=== PATIENT | female | born 1970 | race Two or more races ===

== ENCOUNTER 2016-10-26 21:18 | Emergency (ER) | payer OTHER ==
[~2016-10-26] VITALS: Ht 157.5 cm; Wt 50.3 kg
[2016-10-26 21:20] VITALS: BP 99/61
--- NOTE | 2016-10-26 21:34 | Emergency Room Report ---
History of Present Illness General Chief Complaint: Chest Pain Source: Patient, EMS Present Illness HPI Patient is a 45-year-old female who presented after increased neck pain. Generalized weakness. The patient had been vomiting several times throughout the day. Patient recent surgery on her cervical spine at [facility]. Patient had recently been hospitalized for several days. Patient was noted to have some onset of palpitations with standing. Patient had not been having any diarrhea. she denies any leg pain or swelling. Allergies: Coded Allergies: No Known Allergies (Unverified , 10/26/16) Patient History Last Menstrual Period: UNK Now: No Reviewed Nursing Documentation: PMH: Agreed, PSxH: Agreed Nursing Documentation-PMH Hx Asthma: Yes Review of Systems All Other Systems: negative except mentioned in HPI Physical Exam Vital Signs Date Time Temp Pulse Resp B/P Pulse Ox O2 Delivery O2 Flow Rate FiO2 10/26/16 21:10 98.1 107 16 122/74 99 Room Air General Appearance: alert, GCS 15, moderate distress ENT: normal pharynx Neck: limited range of motion Respiratory: lungs clear, normal breath sounds Cardiovascular #1: normal peripheral pulses, regular rate, rhythm Gastrointestinal: normal bowel sounds, non tender Neurologic: normal inspection, alert, oriented x3, responsive, servicer travel trailers III-XII nml as tested Skin: normal inspection, normal color Medical Decision Making Diagnostic Impression: Primary Impression: Chest pain Additional Impressions: Dehydration H/O cervical spine surgery ER Course Patient presented for chest pain and generalized weakness.Differential diagnosis included but was not limited to acute coronary syndrome, pulmonary embolism, pneumonia, aortic dissection, shingles, pneumothorax, aortic dissection, esophageal rupture, pericarditis. Because of complexity of patient 's case laboratory testing and imaging studies were ordered. The CT the chest was ordered due to patient's recent surgery and risk factor for pulmonary embolism. Patient noted to have negative the CT the chest without evident pneumonia or pneumothorax or pulmonary embolism. The patient was given aspirin by EMS for chest pain. Patient started on IV fluids. Dr. Carlin was contacted for transfer to [facility] for further IV hydration and further workup Labs Test 10/26/16 21:50 10/26/16 22:30 White Blood Count 7.6 K/UL (4.8-10.8) Red Blood Count 3.49 M/UL (4.20-5.40) Hemoglobin 11.5 G/DL (12.0-16.0) Hematocrit 33.3 % (37.0-47.0) Mean Corpuscular Volume 95 FL (80-99) Mean Corpuscular Hemoglobin 33.1 PG (27.0-31.0) Mean Corpuscular Hemoglobin Concent 34.7 G/DL (32.0-36.0) Red Cell Distribution Width 11.7 % (11.6-14.8) Platelet Count 199 K/UL (150-450) Mean Platelet Volume 8.1 FL (6.5-10.1) Neutrophils (%) (Auto) 70.5 % (45.0-75.0) Lymphocytes (%) (Auto) 20.8 % (20.0-45.0) Monocytes (%) (Auto) 7.4 % (1.0-10.0) Eosinophils (%) (Auto) 0.3 % (0.0-3.0) Basophils (%) (Auto) 1.1 % (0.0-2.0) Sodium Level 139 mEQ/L (135-145) Potassium Level 3.3 mEQ/L (3.4-4.9) Chloride Level 104 mEQ/L (98-107) Carbon Dioxide Level 19 mEQ/L (20-30) Anion Gap 16 (5-15) Blood Urea Nitrogen 24 mg/dL (7-23) Creatinine 0.9 mg/dL (0.5-0.9) Estimat Glomerular Filtration Rate > 60 mL/min (>60) Glucose Level 90 mg/dL (74-106) Lactic Acid Level 0.80 mmol/L (0.66-2.22) Calcium Level 7.8 mg/dL (8.6-10.2) Total Bilirubin < 0.2 mg/dL (0.0-1.2) Aspartate Amino Transf (AST/SGOT) 13 U/L (5-40) Alanine Aminotransferase (ALT/SGPT) 14 U/L (3-33) Alkaline Phosphatase 37 U/L (35-104) Total Creatine Kinase 22 U/L (26-140) Creatine Kinase MB < 1.5 ng/mL (< 3.8) Creatine Kinase MB Relative Index Troponin I < 0.30 ng/mL (<=0.30) Pro-B-Type Natriuretic Peptide 25 pg/mL (0-125) Total Protein 5.2 g/dL (6.6-8.7) Albumin 3.0 g/dL (3.5-5.2) Globulin 2.2 g/dL Albumin/Globulin Ratio 1.3 (1.0-2.7) Arterial Blood pH 7.350 (7.350-7.450) Arterial Blood Partial Pressure CO2 31.2 mmHg (35.0-45.0) Arterial Blood Partial Pressure O2 104.2 mmHg (75.0-100.0) Arterial Blood HCO3 17.2 mmol/L (22.0-26.0) Arterial Blood Oxygen Saturation 96.6 % (92.0-98.0) Arterial Blood Base Excess -7.2 Howard Test Positive EKG Diagnostic Results Rate: normal - 94 Rhythm: NSR ST Segments: no acute changes Rhythm Strip Diag. Results EP Interpretation: yes Rhythm: NSR, no PVC's, no ectopy Chest X-Ray Diagnostic Results EP Interpretation: Yes Findings: no consolidation, no effusion, no pneumothorax, no acute cardiopulmonary disease Number of Views: 1 Last Vital Signs Date Time Temp Pulse Resp B/P Pulse Ox O2 Delivery O2 Flow Rate FiO2 10/26/16 21:10 98.1 107 16 122/74 99 Room Air Status: unchanged Disposition: XFER SHT-TRM HOSP Condition: Serious Hesham Miranda Oct 26, 2016 21:34
[2016-10-26 22:36] LABS: ABG ALLEN TEST POSITIVE; ABG BASE EXCESS -7.2; ABG PCO2 31.2 mmHg (35.0-45.0)
[2016-10-26 22:44] LABS: TROPONIN I < 0.30 ng/mL (<=0.30)
[2016-10-26] MEDS ORDERED: D5 1/2NS w/KCl 20mEq 1,000 ML IV SCH (22:45)
[2016-10-26 22:47] LABS: ALANINE AMINOTRANSFERASE 14 U/L (3-33); ALBUMIN/GLOBULIN RATIO 1.3 (1.0-2.7); ANION GAP 16 (5-15); ASPARTATE AMINO TRANSFERASE 13 U/L (5-40); BASOPHILS % (AUTO) 1.1 % (0.0-2.0); CALCIUM 7.8 mg/dL (8.6-10.2); CARBON DIOXIDE 19 mEQ/L (20-30); CHLORIDE 104 mEQ/L (98-107); CREATININE 0.9 mg/dL (0.5-0.9); EOSINOPHILS % (AUTO) 0.3 % (0.0-3.0); GLOMERULAR FILTRATION RATE > 60 mL/min (>60); HEMOLYSIS 7; LYMPHOCYTES % (AUTO) 20.8 % (20.0-45.0); MEAN CORPUSCULAR HEMOGLOBIN 33.1 PG (27.0-31.0); MEAN CORPUSCULAR HGB CONC 34.7 G/DL (32.0-36.0); MEAN CORPUSCULAR VOLUME 95 FL (80-99); MEAN PLATELET VOLUME 8.1 FL (6.5-10.1); MONOCYTES % (AUTO) 7.4 % (1.0-10.0); NEUTROPHILS % (AUTO) 70.5 % (45.0-75.0); PLATELET COUNT 199 K/UL (150-450); POTASSIUM 3.3 mEQ/L (3.4-4.9); RED BLOOD COUNT 3.49 M/UL (4.20-5.40); RED CELL DISTRIBUTION WIDTH 11.7 % (11.6-14.8); SODIUM 139 mEQ/L (135-145); TOTAL PROTEIN 5.2 g/dL (6.6-8.7); WHITE BLOOD COUNT 7.6 K/UL (4.8-10.8)
[2016-10-26 22:58] LABS: CKMB < 1.5 ng/mL (< 3.8)
[2016-10-26 23:00] VITALS: BP 100/58
[2016-10-27 01:00] VITALS: BP 101/60
[2016-10-27 02:20] VITALS: BP 96/51
[2016-10-27 03:01] LABS: APPEARANCE,URINE CLEAR; KETONES,URINE NEGATIVE (NEGATIVE); LEUKOCYTE ESTERASE ,URINE 2+ (NEGATIVE); NITRITE,URINE NEGATIVE (NEGATIVE); PH,URINE 6.5 (4.5-8.0); PROTEIN,URINE 2+ (NEGATIVE); UROBILINOGEN,URINE NORMAL MG/DL (0.0-1.0)
[2016-10-27] MEDS ORDERED: VENTOLIN HFA18 GM INH (03:01)
[2016-10-27] MEDS ORDERED: CYMBALTA20 MG ORAL (03:01)
[2016-10-27] MEDS ORDERED: TRAZODONE HCL50 MG ORAL (03:02)
[2016-10-27 03:21] LABS: BACTERIA,URINE FEW /HPF; RBC,URINE 0-2 /HPF (0 - 2); SQUAMOUS EPITHELIAL CELL,UR MODERATE /LPF (NONE/OCC)
[2016-10-27 03:22] LABS: MUCUS,URINE FEW /LPF (NONE/OCC)
[2016-10-27] MEDS ORDERED: cefTRIAXone 1 GM in NS 55 ML IVPB ONE (04:00)
[2016-10-27 04:15] VITALS: BP 100/65
[2016-10-27 05:00] VITALS: BP 102/65
--- NOTE | 2016-10-27 09:16 | Diagnostic Imaging Report ---
Indication: Jason breath Technique: Single portable AP view of the chest. Findings: Comparison: None. Disc prosthesis, fusion hardware lower cervical spine. Remaining bones and extra pulmonary soft tissues, cardiomediastinal silhouette, pulmonary vasculature and parenchyma, and pleural surfaces are unremarkable. IMPRESSION: Previous cervical fusion and discoplasty Otherwise negative portable AP chest.
--- NOTE | 2016-10-29 09:42 | Diagnostic Imaging Report ---
Indications: Chest pain, shortness of breath Technique: Continuous helical CT imaging of the thorax was performed with automatic exposure control, following bolus intravenous administration of nonionic iodine contrast, on a Siemens sensation [address] scanner. Axial images reconstructed at 3 mm slice thickness and 1.5 mm interval. Coronal and sagittal images were reconstructed at 3 mm slice thickness. Coronal and sagittal two-dimensional maximum intensity projection and three-dimensional volume-rendered images were reconstructed on a stand alone workstation. CTDI volume(s): 13x2, 15 mGy Total DLP: 447 mGy-cm Findings: Comparison: None Images degraded by motion. The main pulmonary artery, right and left pulmonary arteries, and pulmonary artery branches to the level of third order branching are patent and well-opacified. No intraluminal filling defects are demonstrated. Thoracic aorta and great vessels are patent and well-opacified with mild scattered calcified plaquing, normal in caliber and configuration. No evidence of aneurysm, dissection, or leak. Heart normal size. No pericardial abnormality. No mediastinal or hilar enlarged lymph nodes, other abnormal mass or fluid collection. Lungs normally, symmetrically inflated and clear. No pleural abnormality. Chest wall soft tissues nonfocal. Imaged upper abdominal anatomy unremarkable. Fusion hardware is present within the collin anterior margin of the C6-7 disc space. No other focal skeletal abnormalities detected. IMPRESSION: No evidence of pulmonary embolism or other significant acute thoracic pathology C6-7 discectomy and anterior fusion, incompletely imaged This correlates with [facility] preliminary report.
== END 2016-10-27 05:00 | disposition short-term general hospital (02) ==
LOC: EDBD 21:18 → EMR 21:40
DX: R07.9 Chest pain, unspecified (principal); R53.1 Weakness; E86.0 Dehydration; Z98.1 Arthrodesis status
CPT/HCPCS: 36415; 36600; 71010; 71275; 80053; 81003; 82550; 82553; 82803; 83605; 83880; 84484; 85025; 86710; 87040; 93005; 96374; 96375; 99285; J0696; Q9967